=== PATIENT | male | born 1955 | race Caucasian/White ===

== ENCOUNTER → 2018-05-27 09:33 | Outpatient (REF) | payer BC, SELFPAY ==
[2018-05-27 20:50] LABS: BUN 19 mg/dL (7-18); CREATININE 0.89 mg/dL (0.70-1.30); Calcium 8.9 mg/dL (8.5-10.1); Chloride 100 mmol/L (98-107); Glucose 249 mg/dL (70-100); Magnesium 1.9 mg/dL (1.8-2.4); Potassium 4.5 mmol/L (3.5-5.1); Sodium 135 mmol/L (136-145)
[2018-05-27 20:51] LABS: Hemoglobin A1C 8.6 % (4.5-6.2)
== END ==
LOC: NCHCN 09:33
PROVIDERS: PCP Internal Medicine; Visit Provider Internal Medicine
DX: E11.9 Type 2 diabetes mellitus without complications (principal)
CPT/HCPCS: 80048; 83036; 83735

== ENCOUNTER 2019-04-18 09:38 | Outpatient (REF) | payer MEDICARE, BC, SELFPAY ==
[2019-04-18 21:40] LABS: Hemoglobin A1C 8.4 % (4.5-6.2)
[2019-04-18 21:45] LABS: BUN 23 mg/dL (7-18); CREATININE 0.84 mg/dL (0.70-1.30); Calculated LDL 66 mg/dL; Chloride 104 mmol/L (98-107); Cholesterol 145 mg/dL (50-200); Glucose 156 mg/dL (70-100); HDL Cholesterol 67 mg/dL (40-60); Potassium 4.8 mmol/L (3.5-5.1); Sodium 139 mmol/L (136-145); Triglyceride 60 mg/dL (30-150)
== END 2019-04-18 09:58 ==
LOC: NCHCN 09:38
PROVIDERS: PCP Internal Medicine; Visit Provider Internal Medicine
DX: E11.9 Type 2 diabetes mellitus without complications (principal); Z13.6 Encounter for screening for cardiovascular disorders; Z13.220 Encounter for screening for lipoid disorders
CPT/HCPCS: 80048; 80061; 83721; 83036

== ENCOUNTER 2019-10-12 21:42 | Outpatient (REF) | payer OTHER, SELFPAY ==
[2019-10-12 21:56] LABS: COMMENT (LAB VIEW ONLY) 58.91 mg/dL; Microalb ug/mg Crea 5.4 ug/mg Cr
== END 2019-10-12 22:02 ==
LOC: NCHCN 21:42
PROVIDERS: PCP Internal Medicine; Visit Provider Internal Medicine
DX: E11.9 Type 2 diabetes mellitus without complications (principal)
CPT/HCPCS: 82043; 82570

== ENCOUNTER 2020-09-04 11:45 | Outpatient (REF) | payer OTHER, SELFPAY ==
[2020-09-04 22:05] LABS: Absolute Basophil Count 0.04 10^3/uL (0.0-0.2); Absolute Eosinophil Count 0.17 10^3/uL (0.0-0.7); Absolute Lymphocyte Count 1.62 10^3/uL (1.2-3.4); Absolute Monocyte Count 0.39 10^3/uL (0.1-0.8); Absolute Neutrophil Count 2.36 10^3/uL (1.2-6.7); Basophils % 0.9; Eosinophils % 3.7; HGB 12.7 g/dL (13.5-17.5); Lymphocytes % 35.4; MCH 30.3 pg (27.0-33.0); MCHC 33.4 % (32.0-36.0); MCV 90.7 fL (80-95); MPV 11.8 fL (8.0-11.0); Monocytes % 8.5; Neutrophils % 51.5; Nucleated RBC 0 %; Platelet Count 163 10^3/uL (130-400); RBC 4.19 10^6/uL (4.36-5.78); RDW 11.5 % (11.8-14.1); RDW-SD 38.5 fL; WBC 4.58 10^3/uL (4.4-10.8)
[2020-09-04 22:26] LABS: ALT 47 U/L (16-63); AST 26 U/L (15-37); Alkaline Phosphatase 68 U/L (46-116); Anion Gap 6.7 mmol/L (3-11); BUN 25 mg/dL (7-18); Bilirubin, Total 0.5 mg/dL (0.2-1.0); CO2 26.3 mmol/L (21.0-32.0); CREATININE 1.08 mg/dL (0.70-1.30); Calcium 8.9 mg/dL (8.5-10.1); Chloride 103 mmol/L (98-107); Glucose 294 mg/dL (74-106); Potassium 5.4 mmol/L (3.5-5.1); Sodium 136 mmol/L (136-145); Total Protein 6.4 g/dL (6.4-8.2)
== END 2020-09-04 12:05 ==
LOC: NCHCN 11:45
PROVIDERS: PCP Internal Medicine; Visit Provider Internal Medicine
DX: E11.9 Type 2 diabetes mellitus without complications (principal); D64.9 Anemia, unspecified; R13.12 Dysphagia, oropharyngeal phase; J34.89 Other specified disorders of nose and nasal sinuses
CPT/HCPCS: 80053; 85025

== ENCOUNTER 2020-11-19 13:05 | Outpatient (REF) | payer OTHER, SELFPAY ==
[2020-11-19 13:27] LABS: HCT 36.9 % (40.0-50.0); HGB 12.5 g/dL (13.5-17.5); MCH 30.5 pg (27.0-33.0); MCHC 33.9 % (32.0-36.0); MPV 11.1 fL (8.0-11.0); Platelet Count 173 10^3/uL (130-400); RDW 11.9 % (11.8-14.1); RDW-SD 39.3 fL; Reticulocyte 1.2 % (0.5-2.4); WBC 5.15 10^3/uL (4.4-10.8)
[2020-11-19 13:44] LABS: Iron 80 ug/dL (65-175)
[2020-11-19 14:11] LABS: Anion Gap 4.7 mmol/L (3-11); BUN 19 mg/dL (7-18); CO2 28.3 mmol/L (21.0-32.0); CREATININE 1.1 mg/dL (0.70-1.30); Chloride 101 mmol/L (98-107); Ferritin 286 ng/mL (26-388); Glucose 322 mg/dL (74-106); Sodium 134 mmol/L (136-145); Vitamin B12 558 pg/mL (193-986)
== END 2020-11-19 13:06 | disposition home or self-care (01) ==
LOC: NCHCN 13:05
PROVIDERS: PCP Internal Medicine; Visit Provider Internal Medicine
DX: D64.9 Anemia, unspecified (principal)
CPT/HCPCS: 80048; 85027; 82607; 82728; 83540; 85045

== ENCOUNTER 2021-05-07 21:30 | Outpatient (REF) | payer OTHER, SELFPAY ==
[2021-05-07 19:16] LABS: Iron 97 ug/dL (65-175); Total Iron Binding Capacity 293 ug/dL (250-450); Transferrin Sat 33 % (20-55)
[2021-05-07 19:29] LABS: Ferritin 334 ng/mL (26-388)
[2021-05-07 19:40] LABS: Abs Immature Grans 0.02 10^3/uL (0.0-0.06); Absolute Basophil Count 0.05 10^3/uL (0.0-0.2); Absolute Eosinophil Count 0.15 10^3/uL (0.0-0.7); Absolute Lymphocyte Count 1.43 10^3/uL (1.2-3.4); Absolute Monocyte Count 0.45 10^3/uL (0.1-0.8); Absolute Neutrophil Count 3.33 10^3/uL (1.2-6.7); Basophils % 0.9; Eosinophils % 2.8; HCT 41.5 % (40.0-50.0); HGB 13.9 g/dL (13.5-17.5); Immature Grans % 0.4; Lymphocytes % 26.3; MCH 30.6 pg (27.0-33.0); MCHC 33.5 % (32.0-36.0); MCV 91.4 fL (80-95); MPV 11.5 fL (8.0-11.0); Monocytes % 8.3; Neutrophils % 61.3; Nucleated RBC 0 %; Platelet Count 164 10^3/uL (130-400); RBC 4.54 10^6/uL (4.36-5.78); RDW 12.7 % (11.8-14.1); RDW-SD 42.2 fL; WBC 5.43 10^3/uL (4.4-10.8)
== END 2021-05-07 21:31 | disposition home or self-care (01) ==
LOC: NCHCN 21:30
PROVIDERS: PCP Internal Medicine; Visit Provider Internal Medicine
DX: G25.81 Restless legs syndrome (principal); D64.9 Anemia, unspecified
CPT/HCPCS: 82728; 83540; 83550; 85025

== ENCOUNTER 2021-07-28 21:40 | Outpatient (REF) | payer MEDICARE, SELFPAY ==
[2021-07-28 22:30] LABS: COMMENT (LAB VIEW ONLY) 34.84 mg/dL; Microalb ug/mg Crea 7.2 ug/mg Cr
== END 2021-07-28 21:41 | disposition home or self-care (01) ==
LOC: NCHCN 21:40
PROVIDERS: PCP Internal Medicine; Visit Provider Internal Medicine
DX: E11.9 Type 2 diabetes mellitus without complications (principal)
CPT/HCPCS: 82043; 82570

== ENCOUNTER 2023-01-07 21:06 | Outpatient (REF) | payer MEDICARE, SELFPAY ==
[2023-01-07 21:34] LABS: Hemoglobin A1C 10.4 % (<5.7)
== END 2023-01-07 21:07 | disposition home or self-care (01) ==
LOC: NCHCN 21:06
PROVIDERS: PCP Internal Medicine; Visit Provider Internal Medicine
DX: E11.9 Type 2 diabetes mellitus without complications (principal)
CPT/HCPCS: 83036

== ENCOUNTER 2023-02-08 14:17 | Outpatient (REF) | payer MEDICARE, SELFPAY ==
[2023-02-08 21:48] LABS: COMMENT (LAB VIEW ONLY) 94.32 mg/dL; Microalb ug/mg Crea 7.6 ug/mg Cr
[2023-02-08 22:03] LABS: Vitamin D 25 Total 59.7 ng/mL (30-100)
== END 2023-02-08 14:18 | disposition home or self-care (01) ==
LOC: NCHCN 14:17
PROVIDERS: PCP Internal Medicine; Visit Provider Internal Medicine
DX: E11.9 Type 2 diabetes mellitus without complications (principal); E55.9 Vitamin D deficiency, unspecified
CPT/HCPCS: 82306; 82043; 82570

== ENCOUNTER 2023-09-01 13:16 | Outpatient (REF) | payer MEDICARE, SELFPAY ==
[2023-09-01 22:22] LABS: HCT 40.1 % (40.0-50.0); HGB 13.4 g/dL (13.5-17.5); MCH 29.3 pg (27.0-33.0); MCHC 33.4 % (32.0-36.0); MCV 88 fL (80-95); MPV 11.4 fL (8.0-11.0); Platelet Count 155 10^3/uL (130-400); RBC 4.58 10^6/uL (4.36-5.78); RDW-SD 39.1 fL; WBC 4.54 10^3/uL (4.4-10.8)
[2023-09-01 22:24] LABS: ESR 5 mm/hr (0-20)
[2023-09-01 22:28] LABS: C-Reactive Protein 0.06 mg/dL (0.0-0.3)
== END 2023-09-01 13:17 | disposition home or self-care (01) ==
LOC: NCHCN 13:16
PROVIDERS: PCP Internal Medicine; Visit Provider Internal Medicine
DX: G58.9 Mononeuropathy, unspecified (principal)
CPT/HCPCS: 85027; 85652; 86140

== ENCOUNTER 2023-10-20 09:44 | Outpatient (REF) | payer MEDICARE, SELFPAY ==
[2023-10-20 14:33] LABS: ALT 32 U/L (16-63); AST 19 U/L (15-37); Albumin 3.9 g/dL (3.4-5.0); Alkaline Phosphatase 67 U/L (46-116); Anion Gap 4.6 mmol/L (3-11); BUN 17 mg/dL (7-18); Bilirubin, Total 0.8 mg/dL (0.2-1.0); CO2 30.4 mmol/L (21.0-32.0); Calcium 9.8 mg/dL (8.5-10.1); Calculated LDL 80 mg/dL (<100); Chloride 102 mmol/L (98-107); Cholesterol 154 mg/dL (<200); Estimated GFR 81.47 (mL/min/1.73m2); Glucose 266 mg/dL (74-106); HDL Cholesterol 62 mg/dL (40-60); Potassium 4.6 mmol/L (3.5-5.1); Sodium 137 mmol/L (136-145); Total Protein 6.9 g/dL (6.4-8.2); Triglyceride 63 mg/dL (<150)
== END 2023-10-20 09:45 | disposition home or self-care (01) ==
LOC: LBN 09:44
PROVIDERS: PCP Internal Medicine; Visit Provider Nurse Practitioner Family
DX: E11.65 Type 2 diabetes mellitus with hyperglycemia (principal); Z79.4 Long term (current) use of insulin
CPT/HCPCS: 80053; 80061

== ENCOUNTER 2024-07-06 16:27 | Outpatient (REF) | payer MEDICARE, SELFPAY | END 2024-07-06 16:28 | disposition home or self-care (01) | LOC: NCHCN 16:27 | PROVIDERS: PCP Internal Medicine; Visit Provider Internal Medicine | DX: E11.9 Type 2 diabetes mellitus without complications (principal) | CPT/HCPCS: 82043; 82570 ==

== ENCOUNTER 2024-09-11 09:01 | Outpatient (REF) | payer MEDICARE, SELFPAY ==
[2024-09-14 11:19] LABS: C-Peptide 0.8 ng/mL (1.1 - 4.4)
== END 2024-09-11 09:02 | disposition home or self-care (01) ==
LOC: NCHCN 09:01
PROVIDERS: PCP Internal Medicine; Visit Provider Internal Medicine Endocrinology, Diabetes & Metabolism
DX: E11.69 Type 2 diabetes mellitus with other specified complication (principal); Z79.4 Long term (current) use of insulin
CPT/HCPCS: 86341; 84681

== ENCOUNTER 2024-09-21 15:33 | Outpatient (REF) | payer MEDICARE, SELFPAY ==
[2024-09-21 21:15] LABS: HCT 38.9 % (40.0-50.0); HGB 13.2 g/dL (13.5-17.5); MCH 28.9 pg (27.0-33.0); MCHC 33.9 % (32.0-36.0); MCV 85 fL (80-95); Platelet Count 135 10^3/uL (130-400); RBC 4.57 10^6/uL (4.36-5.78); RDW 12.5 % (11.8-14.1); RDW-SD 38.9 fL; WBC 4.49 10^3/uL (4.4-10.8)
[2024-09-21 21:33] LABS: ALT 23 U/L (16-63); AST 21 U/L (15-37); Albumin 3.7 g/dL (3.4-5.0); Alkaline Phosphatase 80 U/L (46-116); Anion Gap 7.9 mmol/L (3-11); BUN 10 mg/dL (7-18); Bilirubin, Total 0.49 mg/dL (0.2-1.0); CO2 27.1 mmol/L (21.0-32.0); CREATININE 1.1 mg/dL (0.70-1.30); Calcium 8.9 mg/dL (8.5-10.1); Calculated LDL 53 mg/dL (<100); Chloride 101 mmol/L (98-107); Cholesterol 132 mg/dL (<200); Estimated GFR 72.22 (mL/min/1.73m2); Glucose 370 mg/dL (74-106); HDL Cholesterol 56 mg/dL (40-60); Potassium 4.6 mmol/L (3.5-5.1); Sodium 136 mmol/L (136-145); Total Protein 6.4 g/dL (6.4-8.2); Triglyceride 118 mg/dL (<150)
[2024-09-22 18:44] LABS: PSA, Screening 0.4 ng/mL (<=6.5)
== END 2024-09-21 15:34 | disposition home or self-care (01) ==
LOC: NCHCN 15:33
PROVIDERS: PCP Internal Medicine; Visit Provider Internal Medicine
DX: E11.9 Type 2 diabetes mellitus without complications (principal); D64.9 Anemia, unspecified; Z12.5 Encounter for screening for malignant neoplasm of prostate
CPT/HCPCS: 80053; 80061; 84153; 85027

== ENCOUNTER 2025-08-06 10:40 | Outpatient (REF) | payer MEDICARE, SELFPAY ==
[2025-08-06 18:15] LABS: Microalb ug/mg Crea 6.4 ug/mg Cr
== END 2025-08-06 10:41 | disposition home or self-care (01) ==
LOC: NCHCN 10:40
PROVIDERS: PCP Internal Medicine; Visit Provider Internal Medicine
DX: E11.9 Type 2 diabetes mellitus without complications (principal)
CPT/HCPCS: 82043; 82570